=== PATIENT | female | born 1940 | race Caucasian/White ===

== ENCOUNTER 2018-11-04 10:09 | Outpatient (CLI) | payer MEDICARE ==
--- NOTE | 2018-11-04 12:53 | DEXA Report ---
Reason: OSTEOPENIA Procedure Date: 11/04/2018 Accession Number: [id number] / [id number] Procedure: DEX - Dexa Spine and/or Hip CPT Code: FULL RESULT: EXAM: Dexa Spine and/or Hip DATE: 11/04/2018 10:43 AM CLINICAL HISTORY: OSTEOPENIA postmenopausal. TECHNIQUE: Dual energy x-ray absorptiometry (DXA) was performed on a [employer] System. Regions measured are the AP Spine, femoral neck, and if needed forearm. COMPARISON: None. In accordance with the International Society for Clinical Densitometry (ISCD) guidelines, data from previous exams may be reanalyzed using current recommendations and techniques. This is done to allow a more accurate basis for comparison with the current study. FINDINGS: The data for the lumbar spine is as follows: BMD (g/cm/cm) T-SCORE Z-SCORE REGION L1 0.952 -1.5 -0.1 L2 1.085 -1.0 0.4 L3 1.064 -1.1 0.3 L4 1.014 -1.6 -0.2 TOTAL 1.029 -1.3 0.1 NOTE: All evaluable vertebrae are used for classification The data for the hip is as follows: BMD (g/cm/cm) T-SCORE Z-SCORE REGION Neck 0.917 -0.9 1.0 TOTAL 0.997 -0.1 1.6 NOTE: The femoral neck or total proximal femur, whichever is lowest, is used for classification. IMPRESSION: THE WHO CLASSIFICATION BASED ON THE INTERNATIONAL REFERENCE STANDARD IS OSTEOPENIA (reference lumbar spine). THE FRACTURE RISK IS INCREASED. RECOMMENDATION: Patients with diagnosis of osteoporosis or osteopenia should have regular bone mineral density assessment. For those eligible for Medicare, routine testing is allowed once every 2 years. Testing frequency can be increased for patients who have rapidly progressing disease or for those who are receiving medical therapy to restore bone mass. COMMENT: World Health Organization (WHO) definitions for osteoporosis and osteopenia: NORMAL BMD: T-score at -1.0 or higher, fracture risk is low OSTEOPENIA BMD: T-score between -1.0 and -2.5, fracture risk is increased. OSTEOPOROSIS BMD: T-score at -2.5 or lower, fracture risk is high. National Osteoporosis Foundation recommends: 1. Obtain adequate dietary calcium (at least 1200 mg per day) and vitamin D (400-800 international units per day). 2. Participate, as appropriate, in regular weightbearing and muscle-strengthening exercise. 3. Avoid tobacco use and reduce alcohol and caffeine intake. 4. For more detailed information see the website at www.NOF.org.
== END 2018-11-04 10:10 | disposition home or self-care (01) ==
LOC: DI 10:09
PROVIDERS: ATTEND Family Medicine
DX: M85.88 Other specified disorders of bone density and structure, other site (principal)
CPT/HCPCS: 77080

== ENCOUNTER 2019-02-04 08:49 | Outpatient (CLI) | payer MEDICARE ==
[2019-02-04 09:31] LABS: ALBUMIN 4.4 g/dL (3.2-5.5); ALBUMIN/GLOBULIN RATIO 1.4 (1.0-2.2); ALKALINE PHOSPHATASE 47 IU/L (42-121); ALT ALANINE AMINOTRANSFERASE 22 IU/L (10-60); AST ASPARTATE AMINOTRANSFERASE 24 IU/L (10-42); BILIRUBIN,TOTAL 0.9 mg/dL (0.2-1.0); BUN - BLOOD UREA NITROGEN 15 mg/dL (6-20); CARBON DIOXIDE - CO2 27 mmol/L (21-32); CHLORIDE 102 mmol/L (101-111); CHOL/HDL RATIO 2.9 (<4.4); CHOLESTEROL 208 mg/dL; CREATININE 0.7 mg/dL (0.4-1.0); GFR - MDRD 81 (>89); GLUCOSE 101 mg/dL (70-100); HDL CHOLESTEROL 72 mg/dL; LDL CHOLESTEROL,CALCULATED 106 mg/dL; LDL/HDL RATIO 1.5 (<4.4); SODIUM 138 mmol/L (135-145); TOTAL PROTEIN 7.5 g/dL (6.7-8.2); VLDL CHOLESTEROL 30 mg/dL
[2019-02-04 09:32] LABS: BASOPHILS % (AUTO) 0.5 %; EOSINOPHILS # (AUTO) 0.1 10^3/uL (0.0-0.7); EOSINOPHILS % (AUTO) 1.9 %; HGB - HEMOGLOBIN 14.6 g/dL (12.0-16.0); LYMPHOCYTES # (AUTO) 1.6 10^3/uL (1.5-3.5); LYMPHOCYTES % (AUTO) 27.4 %; MEAN CORPUSCULAR HEMOGLOBIN 33.1 pg (27.0-31.0); MEAN CORPUSCULAR HGB CONC 33.8 g/dL (32.0-36.0); MEAN PLATELET VOLUME 10.3 fL (7.9-10.8); MONOCYTES # (AUTO) 0.8 10^3/uL (0.0-1.0); NEUTROPHILS # (AUTO) 3.3 10^3/uL (1.5-6.6); NEUTROPHILS % (AUTO) 56.9 %; PLT - PLATELET COUNT 216 10^3/uL (130-450); RED BLOOD COUNT 4.41 10^6/uL (4.20-5.40); RED CELL DISTRIBUTION WIDTH 12.2 % (12.0-15.0); WHITE BLOOD COUNT 5.8 x10^3/uL (4.8-10.8)
== END 2019-02-04 08:50 | disposition home or self-care (01) ==
LOC: LAB 08:49
PROVIDERS: ATTEND Physician Assistant Medical
DX: E78.5 Hyperlipidemia, unspecified (principal); Z51.81 Encounter for therapeutic drug level monitoring
CPT/HCPCS: 36415; 80053; 80061; 83721; 84443; 85025

== ENCOUNTER 2020-01-31 15:27 | Outpatient (CLI) | payer MEDICARE ==
--- NOTE | 2020-02-01 12:38 | Mammography Report ---
BILATERAL DIGITAL SCREENING MAMMOGRAM 3D/2D: 01/31/2020 CLINICAL: Routine screening. Comparison is made to exams dated: 08/19/2017 mammogram, 02/08/2015 mammogram, and 12/19/2013 mammogram - [facility]. The tissue of both breasts is heterogeneously dense. This may lower the sensitivity of mammography. No significant masses, calcifications, or other findings are seen in either breast. There has been no significant interval change. IMPRESSION: NEGATIVE There is no mammographic evidence of malignancy. A 1 year screening mammogram is recommended. This exam was interpreted at Station ID: [id number]. NOTE: For mammograms, a report in lay terms will be sent to the patient. Approximately 15% of breast malignancies will not be visualized mammographically. In the management of a palpable breast mass, a negative mammogram must not discourage biopsy of a clinically suspicious lesion. Electronically Signed By: Devin Brown M.D. ar/penrad:01/31/2020 16:32:46 ACR BI-RADS Category 1: Negative 3341F PARENCHYMAL PATTERN: (D) - The breast(s) demonstrate(s) heterogeneously dense fibroglandular leann benavidez. BI-RADS CATEGORY: (1) - 1 RECOMMENDATION: (ANNUAL) - Recommend routine annual screening mammography. [id number] 1 year screening LATERALITY: (B)
== END 2020-01-31 15:28 | disposition home or self-care (01) ==
LOC: DI 15:27
PROVIDERS: ATTEND Physician Assistant Medical
DX: Z12.31 Encounter for screening mammogram for malignant neoplasm of breast (principal)
CPT/HCPCS: 77063; 77067

== ENCOUNTER 2020-07-17 09:56 | Outpatient (CLI) | payer MEDICARE ==
[2020-07-17 13:02] LABS: BASOPHILS % (AUTO) 0.3 %; EOSINOPHILS # (AUTO) 0.1 10^3/uL (0.0-0.7); EOSINOPHILS % (AUTO) 2.2 %; HGB - HEMOGLOBIN 14.9 g/dL (12.0-16.0); LYMPHOCYTES # (AUTO) 1.5 10^3/uL (1.5-3.5); LYMPHOCYTES % (AUTO) 24.4 %; MEAN CORPUSCULAR HGB CONC 33.2 g/dL (32.0-36.0); MEAN CORPUSCULAR VOLUME 99.6 fL (81.0-99.0); MONOCYTES # (AUTO) 0.7 10^3/uL (0.0-1.0); MONOCYTES % (AUTO) 11.8 %; NEUTROPHILS # (AUTO) 3.7 10^3/uL (1.5-6.6); NEUTROPHILS % (AUTO) 61.1 %; PLT - PLATELET COUNT 223 10^3/uL (130-450); RED BLOOD COUNT 4.51 10^6/uL (4.20-5.40); RED CELL DISTRIBUTION WIDTH 11.9 % (12.0-15.0)
[2020-07-17 13:39] LABS: ALBUMIN 4.7 g/dL (3.2-5.5); ALBUMIN/GLOBULIN RATIO 1.7 (1.0-2.2); ALKALINE PHOSPHATASE 52 IU/L (42-121); ALT ALANINE AMINOTRANSFERASE 24 IU/L (10-60); AST ASPARTATE AMINOTRANSFERASE 27 IU/L (10-42); BILIRUBIN,TOTAL 0.8 mg/dL (0.2-1.0); BUN - BLOOD UREA NITROGEN 12 mg/dL (6-20); CALCIUM 9.5 mg/dL (8.5-10.3); CARBON DIOXIDE - CO2 27 mmol/L (21-32); CHLORIDE 99 mmol/L (101-111); CHOL/HDL RATIO 2.9 (<4.4); CHOLESTEROL 225 mg/dL; CREATININE 0.7 mg/dL (0.4-1.0); GLUCOSE 92 mg/dL (70-100); HDL CHOLESTEROL 77 mg/dL; LDL CHOLESTEROL,CALCULATED 110 mg/dL; LDL/HDL RATIO 1.4 (<4.4); TOTAL PROTEIN 7.4 g/dL (6.7-8.2); VLDL CHOLESTEROL 38 mg/dL
== END 2020-07-17 09:57 | disposition home or self-care (01) ==
LOC: LAB.N 09:56
PROVIDERS: ATTEND Internal Medicine
DX: E78.5 Hyperlipidemia, unspecified (principal); E03.9 Hypothyroidism, unspecified; C18.9 Malignant neoplasm of colon, unspecified
CPT/HCPCS: 36415; 80053; 80061; 83721; 84443; 85025

== ENCOUNTER 2021-02-26 13:20 | Outpatient (CLI) | payer MEDICARE ==
--- NOTE | 2021-02-26 15:17 | XRAY Report ---
PROCEDURE: Lumbar Spine 2 View INDICATIONS: LOW BACK PX TECHNIQUE: 3 views of the lumbar spine were acquired. COMPARISON: None. FINDINGS: Bones: 5 cof-yoe-uhyjheg vertebrae are present. Diffuse osteopenia. There is levo curvature of the lumbar spine centered at L3. There is moderate degenerative changes at L2-3 and L3-4 at the level of levocurvature. No acute compression fractures of the vertebral bodies. Multilevel spondylitic changes with disc space narrowing, degenerative endplate changes and endplate osteophyte formation. Mid and lower lumbar facet arthropathy. No suspicious bony lesions. Soft tissues: Overlying bowel gas pattern is normal. No suspicious soft tissue calcifications. IMPRESSION: 1. Lumbar spine without acute osseous abnormalities. 2. Levocurvature of the lumbar spine centered at L3 with associated spondylitic changes. 3. Moderate multilevel lumbar spondylosis with mid and lower lumbar facet arthropathy. Findings are m ost pronounced at L5-S1. Reviewed by: Matthew Cárdenas MD on 02/26/2021 3:16 PM PDT Approved by: Matthew Cárdenas MD on 02/26/2021 3:16 PM PDT Station ID: [id number]
== END 2021-02-26 23:59 | disposition home or self-care (01) ==
LOC: DI.N 13:20
PROVIDERS: ATTEND Family Medicine
DX: M47.816 Spondylosis without myelopathy or radiculopathy, lumbar region (principal); M47.817 Spondylosis without myelopathy or radiculopathy, lumbosacral region

== ENCOUNTER 2021-05-22 13:43 | Outpatient (CLI) | payer MEDICARE ==
--- NOTE | 2021-05-23 13:38 | Mammography Report ---
BILATERAL DIGITAL SCREENING MAMMOGRAM 3D/2D: 05/22/2021 CLINICAL: Routine screening. Comparison is made to exams dated: 01/31/2020 mammogram, 01/31/2020 mammogram, 08/19/2017 mammogram, 02/08/2015 mammogram, 12/19/2013 mammogram, and 12/19/2013 mammogram - [facility]. The t issue of both breasts is heterogeneously dense. This may lower the sensitivity of mammography. No significant masses, calcifications, or other findings are seen in either breast. There has been no significant interval change. IMPRESSION: NEGATIVE There is no mammographic evidence of malignancy. A 1 year screening mammogram is recommended. This exam was interpreted at Station ID: [id number]. NOTE: For mammograms, a report in lay terms will be sent to the patient. Approximately 15% of breast malignancies will not be visualized mammographically. In the management of a palpable breast mass, a negative mammogram must not discourage biopsy of a clinically suspicious lesion. Electronically Signed By: Merrill Vargas M.D., jr/alison:05/22/2021 15:56:30 ACR BI-RADS Category 1: Negative 3341F PARENCHYMAL PATTERN: (D) - The breast(s) demonstrate(s) heterogeneously dense fibroglandular leann benavidez. BI-RADS CATEGORY: (1) - 1 RECOMMENDATION: (ANNUAL) - Recommend routine annual screening mammography. [id number] 1 year screening LATERALITY: (B)
== END 2021-05-22 13:44 | disposition home or self-care (01) ==
LOC: DI 13:43
PROVIDERS: ATTEND Internal Medicine
DX: Z12.31 Encounter for screening mammogram for malignant neoplasm of breast (principal)

== ENCOUNTER 2021-06-27 10:35 | Outpatient (CLI) | payer MEDICARE ==
--- NOTE | 2021-06-27 15:45 | XRAY Report ---
PROCEDURE: Bone Length Study INDICATIONS: SCIATICA, R SIDE TECHNIQUE: A single frontal standing view of both lower extremities acquired, with measuring ruler s ituated between the legs. COMPARISON: None FINDINGS: Right: Total leg length is 87.1 cm. Left: Total leg length is 86.3 cm. IMPRESSION: Leg length as above Reviewed by: Tiff Bloom MD on 06/27/2021 3:44 PM [facility] Approved by: Tiff Bloom MD on 06/27/2021 3:44 PM [facility] Station ID: [id number]
== END 2021-06-27 10:36 | disposition home or self-care (01) ==
LOC: DI.N 10:35
PROVIDERS: ATTEND Podiatrist
DX: M54.31 Sciatica, right side (principal)

== ENCOUNTER 2021-07-08 13:23 | Outpatient (CLI) | payer MEDICARE ==
--- NOTE | 2021-07-08 19:12 | MRI Report ---
PROCEDURE: Lumbar Spine W/O INDICATIONS: SCIATICA, R SIDE TECHNIQUE: Noncontrast sagittal T1 spin echo and T2 fast echo, sagittal STIR, axial T1 and T2 fast spin echo thr ough the lumbar spine. In cases with scoliosis, additional coronal T2 fast spin echo may be performe d. COMPARISON: None. FINDINGS: Image quality: Excellent. Alignment and Curvature: There is normal bony alignment. Bone Marrow: Wedge-shaped compression fracture of L3 with bone marrow edema is noted. There is a retr opulsed fracture fragment results in moderate central stenosis. Spinal Cord: Conus medullaris terminates at the L1 level. Visualized cord demonstrates normal signa l and size. Paraspinous Soft Tissues: No paravertebral masses. T12-L1: Normal in appearance. L1-L2: Normal in appearance. L2-L3: Disc space narrowing and circumferential disc bulge with hypertrophic facet joints result i n moderate central stenosis. There is moderate bilateral foraminal stenosis greater on the right. L3-L4: Disc space narrowing with circumferential disc bulge and hypertrophic facet joints results i n moderate central stenosis. Moderate right and no left foraminal stenosis. L4-L5: Disc space narrowing and circumferential disc bulge with hypertrophic facet joints results i n mild central stenosis. No foraminal stenosis. L5-S1: Disc space narrowing with small circumferential disc bulge. No central or foraminal stenosis . IMPRESSION: 1. Acute L3 compression fracture with bone marrow edema and retropulsed fracture fragment which combi kevon with degenerative disc disease resulting in moderate central stenosis. 2. Multilevel degenerative disease and arthropathy results in varying degrees of central and foramina l stenosis including moderate central stenosis at L2-3, L3-4. Reviewed by: Santos Medina MD on 07/08/2021 6:10 PM [place] Approved by: Santos Medina MD on 07/08/2021 6:10 PM [place] Station ID: [id number]
== END 2021-07-08 13:24 | disposition home or self-care (01) ==
LOC: DI 13:23
PROVIDERS: ATTEND Podiatrist
DX: M48.56XA Collapsed vertebra, not elsewhere classified, lumbar region, initial encounter for fracture (principal); M51.16 Intervertebral disc disorders with radiculopathy, lumbar region; M48.061 Spinal stenosis, lumbar region without neurogenic claudication; M47.26 Other spondylosis with radiculopathy, lumbar region; M51.37 Other intervertebral disc degeneration, lumbosacral region

== ENCOUNTER 2022-12-26 11:34 | Outpatient (CLI) | payer MEDICARE ==
--- NOTE | 2022-12-26 16:37 | XRAY Report ---
PROCEDURE: Shoulder 3 View RT INDICATIONS: XRAY TECHNIQUE: 3 views of the shoulder were acquired. COMPARISON: None. FINDINGS: Bones: No fractures or dislocations. No suspicious bony lesions. Visualized ribs appear intact. Periarticular osteophyte formation at the acromioclavicular and glenohumeral joints. Soft tissues: No suspicious soft tissue calcifications. IMPRESSION: Osteoarthritis. No acute fracture. No osseous lesion. If symptoms and/or clinical suspici on for pathology continue, further assessment with repeat plain films, or advanced imaging (e.g., CT, MRI, or bone scan) is recommended for further assessment. Reviewed by: Morelia Reynolds MD on 12/26/2022 4:36 PM PDT Approved by: Morelia Reynolds MD on 12/26/2022 4:36 PM PDT Station ID: [id number]
--- NOTE | 2022-12-26 17:20 | XRAY Report ---
PROCEDURE: Knee 2 View BILAT INDICATIONS: DJD TECHNIQUE: 2 views of each knee(s) were acquired. COMPARISON: None. FINDINGS: Bones: No fractures or dislocations. No suspicious bony lesions. Mild tricompartmental osteoarthrit is bilaterally most pronounced in the patellofemoral joints. Soft tissues: Small right and trace left knee joint effusion. No suspicious soft tissue calcificatio ns or masses. IMPRESSION: 1. Mild osteoarthritic changes bilaterally. 2. Small right and trace left knee joint effusion. Reviewed by: Janell Abraham MD on 12/26/2022 5:19 PM PDT Approved by: Janell Abraham MD on 12/26/2022 5:19 PM PDT Station ID: [id number]
--- NOTE | 2022-12-29 17:03 | XRAY Report ---
PROCEDURE: Hips 3-4V BILAT INDICATIONS: HIP PAIN TECHNIQUE: 3 views of the right and left hip were acquired. COMPARISON: None. FINDINGS: Bones: No fractures or dislocations. No suspicious bony lesions. Mild osteoarthritic changes bilate rally. Soft tissues: No suspicious soft tissue calcifications or masses. IMPRESSION: 1. Mild osteoarthritic changes bilaterally. Reviewed by: Janell Abraham MD on 12/29/2022 5:02 PM PDT Approved by: Janell Abraham MD on 12/29/2022 5:02 PM PDT Station ID: [id number]
== END 2022-12-26 11:35 | disposition home or self-care (01) ==
LOC: DI.N 11:34 → DI 11:35
PROVIDERS: ATTEND Internal Medicine
DX: M19.011 Primary osteoarthritis, right shoulder (principal); M17.0 Bilateral primary osteoarthritis of knee; M25.461 Effusion, right knee; M25.462 Effusion, left knee; M16.0 Bilateral primary osteoarthritis of hip

== ENCOUNTER 2023-05-02 09:15 | Outpatient (CLI) | payer MEDICARE ==
--- NOTE | 2023-05-04 21:42 | MRI Report ---
PROCEDURE: KNEE WO - LT INDICATIONS: BILATERAL KNEE PAIN TECHNIQUE: Noncontrast sagittal PD fast spin echo and T2 fast spin echo with fat saturation, sagittal 3-D gradie nt sequence with fat saturation; coronal T1 spin echo and PD fast spin echo with fat saturation, and axial PD fast spin echo with fat saturation through the knee. COMPARISON: X-ray knees, bilateral, 12/26/2022. FINDINGS: Image quality: Excellent. Menisci: Lateral meniscal extrusion. There is horizontal tear involving the body of the lateral menis cus. There is intrasubstance degeneration of the posterior horn the medial meniscus. The meniscal jayce t ligaments appear intact. Cruciate ligaments: The anterior and posterior cruciate ligaments appear intact. Medial structures: The medial collateral ligament appears intact. The semimembranosus tendon insert ions and meniscocapsular junction appear intact. Visualized portions of the pes anserinus tendons ap pear normal. No abnormal bursal fluid. Lateral structures: The lateral collateral ligament, long and short heads of the biceps femoris tend on appear intact. The popliteus tendon appears normal. Iliotibial band appears normal. Anterior structures: The quadriceps and patellar tendons appear intact. Low-grade quadriceps tendin itis and patellar tendinitis. Patellar alignment is normal. No femoral trochlear dysplasia or ventra l trochlear prominence. No edema in the infrapatellar fat pad. Bones and cartilage: No bone marrow contusions or fractures. Severe chondromalacia patella. There i s also moderate cartilage thinning and signal degeneration in the medial and lateral femorotibial com partments. Joint space: There is small knee joint effusion. There is a small synovial cyst at the proximal tibi ofibular joint. Normal appearing synovial plicae are incidentally noted. IMPRESSION: 1. Lateral meniscal extrusion and horizontal tear of the body of the lateral meniscus. 2. Intrasubstance degeneration of the posterior horn the medial meniscus that 3. Severe chondromalacia patella. 4. Moderate cartilage loss in the medial and lateral femorotibial compartment. 5. Mild quadriceps tendinitis and patellar tendinitis. Reviewed by: Janell Abraham MD on 05/04/2023 9:41 PM PST Approved by: Janell Abraham MD on 05/04/2023 9:41 PM PST Station ID: [id number]
== END 2023-05-02 09:16 | disposition home or self-care (01) ==
LOC: DI 09:15
PROVIDERS: ATTEND Student in an Organized Health Care Education/Training Program
DX: S83.282A Other tear of lateral meniscus, current injury, left knee, initial encounter (principal); M23.304 Other meniscus derangements, unspecified medial meniscus, left knee; M76.892 Other specified enthesopathies of left lower limb, excluding foot

== ENCOUNTER 2023-07-16 11:10 | Outpatient (CLI) | payer MEDICARE ==
--- NOTE | 2023-07-17 12:06 | Mammography Report ---
BILATERAL DIGITAL SCREENING MAMMOGRAM 3D/2D: 07/16/2023 CLINICAL: Routine screening. Comparison is made to exams dated: 05/22/2021 mammogram, 01/31/2020 mammogram, 01/31/2020 mammogram, mammogram, 02/08/2015 mammogram, and 12/19/2013 mammogram - [facility]. Both breasts are extremely dense, which lowers the sensitivity of mammography (category d />75% gland ular tissue). No significant masses, calcifications, or other findings are seen in either breast. There has been no significant interval change. IMPRESSION: NEGATIVE There is no mammographic evidence of malignancy. A 1 year screening mammogram is recommended. This exam was interpreted at Station ID: [id number]. NOTE: For mammograms, a report in lay terms will be sent to the patient. Approximately 15% of breast malignancies will not be visualized mammographically. In the management of a palpable breast mass, a negative mammogram must not discourage biopsy of a clinically suspicious lesion. Electronically Signed By: Grady odell/alison:07/16/2023 13:24:48 letter sent: No_Letter ACR BI-RADS Category 1: Negative 3341F PARENCHYMAL PATTERN: (VD) - The breast(s) demonstrate(s) extremely dense parenchyma, limiting the sen sitivity of mammography. BI-RADS CATEGORY: (1) - 1 Mammogram [id number] 1 year screening LATERALITY: (B)
== END 2023-07-16 11:11 | disposition home or self-care (01) ==
LOC: DI 11:10
DX: Z12.31 Encounter for screening mammogram for malignant neoplasm of breast (principal); R92.30 Dense breasts, unspecified